=== PATIENT | male | born 1965 | race Caucasian/White ===

== ENCOUNTER 2022-10-27 10:00 | Outpatient (RCR) | payer OTHER, SELFPAY | END 2022-11-15 11:26 | disposition home or self-care (01) | LOC: HO.PTWFD 10:00 | PROVIDERS: Visit Provider Orthopaedic Surgery Foot and Ankle Surgery | DX: S93.402D Sprain of unspecified ligament of left ankle, subsequent encounter (principal) | CPT/HCPCS: 97110; 97140; 97150; 97162; 97535 ==